=== PATIENT | female | born 1955 | race Hispanic/Latino ===

== ENCOUNTER → 2018-05-02 | Outpatient (CLI) | payer OTHER | END | disposition home or self-care (01) | LOC: RAH 08:54 | PROVIDERS: ATTEND Family Medicine | DX: K76.0 Fatty (change of) liver, not elsewhere classified (principal); R16.0 Hepatomegaly, not elsewhere classified; R63.4 Abnormal weight loss | CPT/HCPCS: 76700; 76856 ==

== ENCOUNTER → 2018-09-14 | Outpatient (CLI) | payer OTHER ==
[~2018-09-14] MED LIST: REGADENOSON 0.4 MG/5 ML PF SYG IVP SCH
== END | disposition home or self-care (01) ==
LOC: SHCH 08:13
PROVIDERS: ATTEND Internal Medicine Cardiovascular Disease
DX: I25.119 Atherosclerotic heart disease of native coronary artery with unspecified angina pectoris (principal); I10 Essential (primary) hypertension
CPT/HCPCS: 78452; 93017; 96374; A9500 ×2; J2785

== ENCOUNTER 2018-11-09 05:44 | Day surgery (SDC) | payer OTHER ==
[2018-11-07 13:14] VITALS: BP 140/73
[2018-11-07 13:22] LABS: BASOPHILS % (AUTO) 0.4 % (0.0-5.0); EOSINOPHILS % (AUTO) 1.4 % (0.0-8.0); HEMATOCRIT 45.7 % (36-48); LYMPHOCYTES % (AUTO) 27.4 % (21.0-51.0); MEAN CORPUSCULAR HEMOGLOBIN 31.4 pg (27.0-33.0); MEAN CORPUSCULAR HGB CONC 33.2 g/dL (32.0-36.0); MEAN CORPUSCULAR VOLUME 94.4 fL (79-99); MONOCYTES % (AUTO) 4.1 % (3.0-13.0); NEUTROPHILS % (AUTO) 66.7 % (40.0-77.0); PLATELET COUNT (AUTO) 210 K/uL (130-400); RED BLOOD CELL COUNT(AUTO) 4.84 MIL/uL (4.00-5.50); RED CELL DISTRIBUTION WIDTH 13.5 % (11.0-15.5); WHITE BLOOD COUNT (AUTO) 11.3 K/uL (4.8-10.8)
[2018-11-07 13:24] LABS: APPEARANCE,URINE CLEAR (CLEAR); BILIRUBIN,URINE NEGATIVE (NEGATIVE); COLOR,URINE YELLOW (YELLOW); GLUCOSE, URINE (UA) NEGATIVE (NEGATIVE); KETONES,URINE NEGATIVE (NEGATIVE); LEUKOCYTE ESTERASE ,URINE NEGATIVE (NEGATIVE); NITRATE,URINE NEGATIVE (NEGATIVE); OCCULT BLOOD,URINE NEGATIVE (NEGATIVE); PH,URINE 5.5 (5.0-8.0); PROTEIN,URINE NEGATIVE (NEGATIVE); UROBILINOGEN,URINE 0.2 mg/dL (0.2-1.0)
[2018-11-07 13:28] LABS: CREATININE 0.9 mg/dL (0.5-1.5); POTASSIUM 3.5 mmol/L (3.5-5.1)
[2018-11-07 13:38] LABS: INR 0.98 (0.85-1.15); PARTIAL THROMBOPLASTIN TIME 27.3 SEC (26.3-35.5); PROTHROMBIN TIME 10.3 SEC (9.6-11.6)
--- NOTE | 2018-11-08 12:08 | NUR ---
ABNORMAL LABS REPORTED ABNORMAL LABS TO NAZ NIETO. WBC 11.3. ORDERS TO REDRAW CBC IN MORNING.
[2018-11-09] VITALS (20 sets, daily range): BP systolic 121–158; BP diastolic 61–98
[~2018-11-09] VITALS: Ht 157.5 cm; Wt 83.0 kg
[~2018-11-09 05:44] MED LIST changes: +ASPI-555 PO; +LOSA50TA64 PO; +METF-444 PO; +METO100T14 PO; +RANI150T7 PO; -REGADENOSON 0.4 MG/5 ML PF SYG IVP SCH
[2018-11-09 06:04] LABS: BASOPHILS % (AUTO) 0.9 % (0.0-5.0); EOSINOPHILS % (AUTO) 2.1 % (0.0-8.0); HEMATOCRIT 43.5 % (36-48); LYMPHOCYTES % (AUTO) 35.2 % (21.0-51.0); MEAN CORPUSCULAR VOLUME 93.9 fL (79-99); MONOCYTES % (AUTO) 6.2 % (3.0-13.0); NEUTROPHILS % (AUTO) 55.6 % (40.0-77.0); NUCLEATED RED BLOOD CELLS 0.1 % (0.0-0.19); PLATELET COUNT (AUTO) 181 K/uL (130-400); RED BLOOD CELL COUNT(AUTO) 4.63 MIL/uL (4.00-5.50); RED CELL DISTRIBUTION WIDTH 13.5 % (11.0-15.5); WHITE BLOOD COUNT (AUTO) 9.4 K/uL (4.8-10.8)
[2018-11-09] MEDS ORDERED: SODIUM CHLORIDE 0.9% 1000ML 1,000 ML IV ONE (06:22)
[2018-11-09] MEDS ORDERED: IOHEXOL 350 MG/ML 100ML INFUS..BTL IV ONE (07:13)
[2018-11-09] MEDS ORDERED: HEPARIN SODIUM 1000UNIT/ML 10ML VIAL ONE (07:13)
[2018-11-09] MEDS ORDERED: LIDOCAINE HCL 2% 20ML ONE (07:13)
[2018-11-09] MEDS ORDERED: IOHEXOL-350 50ML VIAL IV ONE (07:13)
--- NOTE | 2018-11-09 07:15 | NUR ---
procedure pt taken to test lab technician for LHC, pt awake and alert,no distress noted. denies any pain or discomforts. family at bedside, pt voided prior to going
[2018-11-09] MEDS ORDERED: SODIUM CHLORIDE 0.9% 1000ML 1,000 ML IV SCH (08:00)
[2018-11-09] MEDS ORDERED: DEXTROSE 50%-WATER 50 ML DISP.SYRIN IV PRN (08:15)
[2018-11-09] MEDS ORDERED: GLUCAGON 1MG KIT 1 MG ML IM PRN (08:15)
[2018-11-09] MEDS ORDERED: SODIUM CHLORIDE 0.9% 10 ML VIAL IVP SCH (08:15)
--- NOTE | 2018-11-09 08:51 | NUR ---
A- LINE RIGHT GROIN ARTERIAL LINE PULLED BY Trinidad CARRIZALES RN. MANUAL PRESSURED BEING APPLIED. VS STABLE WILL CONTINUE TO MONITOR, RIGHT PEDAL PULSE PRESENT WITH DOPPLER ,
--- NOTE | 2018-11-09 09:20 | NUR ---
A- LINE HEMOSTASIS ACHIEVED, D STAT APPLIED TO RIGHT GROIN AREA. NO BLEEDING OR HEMATOMA NOTED, VS STABLE. PT RAHUL WELL. PT INSTRUCTED TO MAINTAIN BEDREST FOR 7 HRS. WILL CONTINUE TO MONITOR
[2018-11-09] MEDS ORDERED: INSULIN HUMULIN R 100 UNIT/ML 3ML SQ SCH (11:30)
--- NOTE | 2018-11-09 15:49 | NUR ---
dc dc instructions given to pt /pts daughter instructed to hold metformin for 48 hrs, to f/u with dr. redman, right groin dressing dry and intact, no hematoma or bleeding noted. right leg warm to touch, pink and with postive pedal pulse per doppler. pt awake and alert , denied any pain or discomforts. daughter at bedside. piv removed to left hand, catheter intact, site asymptomatic
--- NOTE | 2018-11-09 16:01 | NUR ---
dc pt dc home via w[place] , accompanied by daughter, pt awake and alert, right groin dressing dry and intact, no bleeding hematoma to site.
== END 2018-11-09 16:01 | disposition home or self-care (01) ==
LOC: DAH 05:44
PROVIDERS: ATTEND Internal Medicine Cardiovascular Disease
DX: I25.118 Atherosclerotic heart disease of native coronary artery with other forms of angina pectoris (principal); Z79.899 Other long term (current) drug therapy; Z79.01 Long term (current) use of anticoagulants; E78.5 Hyperlipidemia, unspecified; I11.9 Hypertensive heart disease without heart failure; E66.01 Morbid (severe) obesity due to excess calories; E11.9 Type 2 diabetes mellitus without complications; Z79.84 Long term (current) use of oral hypoglycemic drugs; Z68.32 Body mass index [BMI] 32.0-32.9, adult
CPT/HCPCS: 36415 ×2; 71045; 80048; 81003; 82948 ×3; 85025 ×2; 85610; 85730; 93005; 93458; A4606; C1894; J1644; J1815; J3490; J7030; Q9965; Q9967 ×2

== ENCOUNTER → 2019-08-17 | Outpatient (CLI) | payer OTHER ==
[~2019-08-17] MED LIST changes: +ROPIVACAINE 0.5% 5MG/ML 30ML IJ ONE
== END | disposition home or self-care (01) ==
LOC: SHCH 14:31
PROVIDERS: ATTEND Internal Medicine Cardiovascular Disease
DX: I73.9 Peripheral vascular disease, unspecified (principal)
CPT/HCPCS: 93925

== ENCOUNTER → 2021-06-11 | Outpatient (CLI) | payer MEDICARE ==
[~2021-06-11] MED LIST changes: -ASPI-555 PO; +ASPI-556 PO; -ROPIVACAINE 0.5% 5MG/ML 30ML IJ ONE
[2021-06-11 15:36] LABS: CREATININE 0.7 mg/dL (0.5-1.5)
== END | disposition home or self-care (01) ==
LOC: LAB 14:15
PROVIDERS: ATTEND Internal Medicine Cardiovascular Disease
DX: I25.10 Atherosclerotic heart disease of native coronary artery without angina pectoris (principal); E78.5 Hyperlipidemia, unspecified
CPT/HCPCS: 36415; 82565; 84520

== ENCOUNTER → 2021-06-15 | Outpatient (CLI) | payer MEDICARE ==
[~2021-06-15] MED LIST changes: +IOHEXOL-350 50ML VIAL IV ONE
== END | disposition home or self-care (01) ==
LOC: RAH 08:00
PROVIDERS: ATTEND Internal Medicine Cardiovascular Disease
DX: I70.0 Atherosclerosis of aorta (principal); I70.292 Other atherosclerosis of native arteries of extremities, left leg
CPT/HCPCS: 75635; Q9967

== ENCOUNTER 2022-03-03 05:53 | Day surgery (SDC) | payer OTHER ==
[2022-03-01 09:18] VITALS: BP 137/76
[2022-03-01 09:49] LABS: BASOPHILS % (AUTO) 0.3 % (0.0-5.0); EOSINOPHILS % (AUTO) 2.1 % (0.0-8.0); HEMATOCRIT 42.2 % (36-48); LYMPHOCYTES % (AUTO) 29.1 % (21.0-51.0); MEAN CORPUSCULAR HEMOGLOBIN 31.4 pg (27.0-33.0); MEAN CORPUSCULAR HGB CONC 32.9 g/dL (32.0-36.0); MEAN CORPUSCULAR VOLUME 95.5 fL (79-99); MONOCYTES % (AUTO) 5.6 % (3.0-13.0); NEUTROPHILS % (AUTO) 62.6 % (40.0-77.0); PLATELET COUNT (AUTO) 257 K/uL (130-400); RED BLOOD CELL COUNT(AUTO) 4.42 MIL/uL (4.00-5.50)
[2022-03-01 09:56] LABS: CREATININE 0.6 mg/dL (0.5-1.5); POTASSIUM 4.6 mmol/L (3.5-5.1)
[2022-03-01 10:28] LABS: INR 0.94 (0.85-1.15); PROTHROMBIN TIME 10.3 SEC (9.6-11.6)
[2022-03-01 10:29] LABS: PARTIAL THROMBOPLASTIN TIME 25.4 SEC (26.3-35.5)
[2022-03-03] VITALS (10 sets, daily range): BP systolic 121–146; BP diastolic 70–85
[~2022-03-03] VITALS: Ht 157.5 cm; Wt 74.8 kg
[~2022-03-03 05:53] MED LIST changes: -IOHEXOL-350 50ML VIAL IV ONE
[2022-03-03] MEDS ORDERED: 0.9%NACL 1000ML 1,000 ML IV ONE (06:14)
[2022-03-03] MEDS ORDERED: CILO100T PO (06:58)
[2022-03-03] MEDS ORDERED: CLOP75TA14 PO (06:58)
[2022-03-03] MEDS ORDERED: FISH1CAP27 PO (06:58)
[2022-03-03] MEDS ORDERED: MVIT PO (06:58)
[2022-03-03] MEDS ORDERED: NICARDIPINE 25MG INJ IV ONE (07:11)
[2022-03-03] MEDS ORDERED: NITROGLYCERIN 50MG VIAL ONE (07:11)
[2022-03-03] MEDS ORDERED: HEPARIN 10,000 UNIT/10ML (1,000 UNIT/ML) VIAL ONE (07:11)
[2022-03-03] MEDS ORDERED: IODIXANOL 320 MG/ML 100 ML VIAL ONE (07:12)
[2022-03-03] MEDS ORDERED: LIDOCAINE HCL 400MG/20ML VIAL ONE (07:12)
[2022-03-03] MEDS ORDERED: MIDAZOLAM HCL 1 MG/ML 2ML VIAL ONE (07:40)
[2022-03-03] MEDS ORDERED: FENTANYL CITRATE PF 50 MCG/1 ML 2ML VIAL ONE (07:41)
[2022-03-03] MEDS ORDERED: ASPIRIN 325MG EC TAB PO ONE (09:28)
[2022-03-03] MEDS ORDERED: CLOPIDOGREL 300MG TAB ONE (09:29)
[2022-03-03] MEDS ORDERED: GLUCAGON 1MG KIT 1 MG ML IM PRN (09:30)
[2022-03-03] MEDS ORDERED: DEXTROSE 50%-WATER 50 ML DISP.SYRIN IV PRN (09:30)
== END 2022-03-03 13:45 | disposition home or self-care (01) ==
LOC: DAH 05:53
PROVIDERS: ATTEND Internal Medicine Cardiovascular Disease
DX: I70.211 Atherosclerosis of native arteries of extremities with intermittent claudication, right leg (principal); E11.51 Type 2 diabetes mellitus with diabetic peripheral angiopathy without gangrene; I70.92 Chronic total occlusion of artery of the extremities; I10 Essential (primary) hypertension; E78.5 Hyperlipidemia, unspecified; I25.2 Old myocardial infarction; Z79.01 Long term (current) use of anticoagulants; Z79.899 Other long term (current) drug therapy; Z79.84 Long term (current) use of oral hypoglycemic drugs; Z87.891 Personal history of nicotine dependence
CPT/HCPCS: 36415; 71045; 75710; 80048; 82948 ×2; 85025; 85347; 85610; 85730; 93005; A4215; A4216; A4221; A4222; A4223 ×3; A4606; A4663; C1727; C1769 ×2; C1894 ×4; C9772; J1644 ×2; J2250; J3010; J3490 ×3; J7030; Q9967; 36140; 99156; 99157

== ENCOUNTER 2022-04-09 05:52 | Day surgery (SDC) | payer OTHER ==
[2022-04-07 09:02] LABS: BASOPHILS % (AUTO) 0.3 % (0.0-5.0); HEMATOCRIT 43.4 % (36-48); LYMPHOCYTES % (AUTO) 30.3 % (21.0-51.0); MEAN CORPUSCULAR HEMOGLOBIN 31.7 pg (27.0-33.0); MEAN CORPUSCULAR HGB CONC 33.6 g/dL (32.0-36.0); MEAN CORPUSCULAR VOLUME 94.3 fL (79-99); MONOCYTES % (AUTO) 5.3 % (3.0-13.0); NEUTROPHILS % (AUTO) 61.8 % (40.0-77.0); PLATELET COUNT (AUTO) 280 K/uL (130-400); RED CELL DISTRIBUTION WIDTH 13.4 % (11.0-15.5); WHITE BLOOD COUNT (AUTO) 10.1 K/uL (4.8-10.8)
[2022-04-07 09:09] LABS: CREATININE 0.6 mg/dL (0.5-1.5); POTASSIUM 4.5 mmol/L (3.5-5.1)
[2022-04-07 09:10] LABS: INR 0.95 (0.85-1.15); PROTHROMBIN TIME 10.4 SEC (9.6-11.6)
[2022-04-07 09:12] LABS: PARTIAL THROMBOPLASTIN TIME 26.2 SEC (26.3-35.5)
[2022-04-07 09:26] LABS: B-TYPE NATRIURETIC PEPTIDE 19 pg/mL (0-100)
[2022-04-08 10:40] VITALS: BP 142/81
[2022-04-09] VITALS (9 sets, daily range): BP systolic 121–153; BP diastolic 71–88
[~2022-04-09] VITALS: Ht 157.5 cm; Wt 76.2 kg
[~2022-04-09 05:52] MED LIST changes: -ASPI-556 PO; +CILO100T PO; +CLOP75TA14 PO; +FISH1CAP27 PO; +PANT40TA54 PO; -RANI150T7 PO
[2022-04-09] MEDS ORDERED: 0.9% NACL 500ML IV.SOLN 500 ML IV SCH (06:00)
[2022-04-09] MEDS ORDERED: 0.9%NACL 1000ML 1,000 ML IV ONE (06:51)
[2022-04-09] MEDS ORDERED: NICARDIPINE 25MG INJ IV ONE (07:14)
[2022-04-09] MEDS ORDERED: HEPARIN 10,000 UNIT/10ML (1,000 UNIT/ML) VIAL ONE (07:14)
[2022-04-09] MEDS ORDERED: NITROGLYCERIN 50MG VIAL ONE (07:14)
[2022-04-09] MEDS ORDERED: SODIUM BICARB 50MEQ 50ML VIAL 0 ML ONE (07:14)
[2022-04-09] MEDS ORDERED: LIDOCAINE HCL 400MG/20ML VIAL ONE ×2 (07:15→08:20)
[2022-04-09] MEDS ORDERED: IODIXANOL 320 MG/ML 100 ML VIAL ONE (07:15)
[2022-04-09] MEDS ORDERED: FENTANYL CITRATE PF 50 MCG/1 ML 2ML VIAL ONE (07:19)
[2022-04-09] MEDS ORDERED: MIDAZOLAM HCL 1 MG/ML 2ML VIAL ONE ×2 (07:19→09:29)
[2022-04-09] MEDS ORDERED: DEXTROSE 50%-WATER 50 ML DISP.SYRIN IV PRN (10:00)
[2022-04-09] MEDS ORDERED: GLUCAGON 1MG KIT 1 MG ML IM PRN (10:00)
== END 2022-04-09 14:15 | disposition home or self-care (01) ==
LOC: DAH 05:52
PROVIDERS: ATTEND Internal Medicine Cardiovascular Disease
DX: I70.212 Atherosclerosis of native arteries of extremities with intermittent claudication, left leg (principal); I10 Essential (primary) hypertension; I25.10 Atherosclerotic heart disease of native coronary artery without angina pectoris; E78.5 Hyperlipidemia, unspecified; F17.200 Nicotine dependence, unspecified, uncomplicated; E66.9 Obesity, unspecified; Z79.01 Long term (current) use of anticoagulants; Z79.899 Other long term (current) drug therapy; Z79.84 Long term (current) use of oral hypoglycemic drugs; Z98.890 Other specified postprocedural states; Z79.82 Long term (current) use of aspirin; Z68.30 Body mass index [BMI] 30.0-30.9, adult; Z95.5 Presence of coronary angioplasty implant and graft
CPT/HCPCS: 36415 ×2; 71045; 75716; 80048; 82948 ×2; 83880; 85025; 85347 ×2; 85610; 85730; 93005; A4215; A4216; A4221; A4222; A4223 ×3; A4606; A4663; C1725; C1727; C1760; C1769 ×6; C1887; C1894 ×3; C9772; J1644 ×3; J2250 ×2; J3010; J3490 ×4; J7030; Q9967; 75774; 99156; 99157

== ENCOUNTER 2023-03-28 18:36 | Observation (INO) | payer OTHER ==
[~2023-03-28] VITALS: Ht 157.5 cm; Wt 78.6 kg
[~2023-03-28 18:36] MED LIST changes: -CILO100T PO; +CILO100T3 PO; +CLOP-31 PO; -CLOP75TA14 PO
[2023-03-28 19:13] LABS: BASOPHILS % (AUTO) 0.4 % (0.0-5.0); EOSINOPHILS % (AUTO) 2.1 % (0.0-8.0); HEMATOCRIT 43.2 % (36-48); LYMPHOCYTES % (AUTO) 41.1 % (21.0-51.0); MEAN CORPUSCULAR HGB CONC 34.5 g/dL (32.0-36.0); MEAN CORPUSCULAR VOLUME 92.9 fL (79-99); MONOCYTES % (AUTO) 7.1 % (3.0-13.0); NEUTROPHILS % (AUTO) 48.9 % (40.0-77.0); PLATELET COUNT (AUTO) 236 K/uL (130-400); RED BLOOD CELL COUNT(AUTO) 4.65 MIL/uL (4.00-5.50); RED CELL DISTRIBUTION WIDTH 13.1 % (11.0-15.5); WHITE BLOOD COUNT (AUTO) 9.3 K/uL (4.8-10.8)
[2023-03-28 19:24] LABS: CREATININE 0.7 mg/dL (0.5-1.5); POTASSIUM 3.3 mmol/L (3.5-5.1)
[2023-03-28 19:29] LABS: TOTAL PROTEIN, SERUM 7.5 g/dL (6.0-8.3)
[2023-03-28 19:44] LABS: B-TYPE NATRIURETIC PEPTIDE 29 pg/mL (0-100)
[2023-03-28] MEDS ORDERED: MORPHINE 2 MG SYG IVP ONE (20:00)
[2023-03-28] MEDS ORDERED: IOHEXOL-350 75 ML VIAL IV ONE (20:13)
[2023-03-28 21:27] LABS: APPEARANCE,URINE CLEAR (CLEAR); BILIRUBIN,URINE NEGATIVE (NEGATIVE); COLOR,URINE COLORLESS (YELLOW); GLUCOSE, URINE (UA) NEGATIVE (NEGATIVE); KETONES,URINE NEGATIVE (NEGATIVE); LEUKOCYTE ESTERASE ,URINE NEGATIVE Leu/uL (NEGATIVE); NITRATE,URINE NEGATIVE (NEGATIVE); OCCULT BLOOD,URINE NEGATIVE (NEGATIVE); PH,URINE 5.5 (5.0-8.0); PROTEIN,URINE NEGATIVE (NEGATIVE); UROBILINOGEN,URINE 0.2 mg/dL (0.2-1.0)
[2023-03-28 21:32] LABS: RBC,URINE 0-1 /HPF (0-1); SQUAMOUS EPITHELIAL CELL,UR RARE /HPF (0-2); WBC,URINE 0-1 /HPF (0-1)
[2023-03-28] MEDS ORDERED: NITROGLYCERIN 0.4 MG SL TAB SL PRN (22:00)
[2023-03-28] MEDS ORDERED: DOCUSATE SODIUM 100 MG CAP PO PRN (22:00)
[2023-03-28] MEDS ORDERED: ACETAMINOPHEN 325 MG TAB PO PRN ×2 (22:00)
[2023-03-28] MEDS ORDERED: GUAIFENESIN SUGAR-FREE 100 MG/5 ML UDCUP PO PRN (22:00)
[2023-03-28] MEDS ORDERED: POLYETHYLENE GLYCOL 3350 17 GM POWD.PACK PO PRN (22:00)
[2023-03-28] MEDS ORDERED: ONDANSETRON 4MG INJ IV PRN (22:00)
[2023-03-28] MEDS ORDERED: ARTIFICAL TEARS SOL 15 ML OP PRN (22:00)
[2023-03-28] MEDS ORDERED: ALBUTEROL 0.083% 2.5 MG/3 ML INH IH PRN (22:00)
[2023-03-28] MEDS: ASPIRIN 325MG EC TAB PO SCH (22:24)
[2023-03-29 02:03] VITALS: BP 144/83
[2023-03-29] MEDS ORDERED: NIFE-78 PO (03:02)
[2023-03-29] MEDS ORDERED: FENO145T26 PO (03:02)
[2023-03-29] MEDS ORDERED: APIX2.5T PO (03:02)
[2023-03-29] MEDS ORDERED: PANT20TA PO (03:02)
[2023-03-29 04:13] VITALS: BP 103/78
[2023-03-29 05:58] LABS: HEMATOCRIT 40.8 % (36-48); MEAN CORPUSCULAR HEMOGLOBIN 31.5 pg (27.0-33.0); MEAN CORPUSCULAR HGB CONC 33.8 g/dL (32.0-36.0); MEAN CORPUSCULAR VOLUME 93.2 fL (79-99); RED BLOOD CELL COUNT(AUTO) 4.38 MIL/uL (4.00-5.50); RED CELL DISTRIBUTION WIDTH 13.2 % (11.0-15.5); WHITE BLOOD COUNT (AUTO) 6.8 K/uL (4.8-10.8)
[2023-03-29] MEDS: INSULIN HUMULIN R 100 UNIT/ML 3ML SQ SCH ×4 (06:00→18:00)
[2023-03-29 06:28] LABS: ALBUMIN 3.4 g/dL (3.5-5.0); CREATININE 0.6 mg/dL (0.5-1.5); MAGNESIUM 1.7 mg/dL (1.80-2.40); POTASSIUM 3.8 mmol/L (3.5-5.1); THYROID STIMULATING HORMONE 2.58 uIU/mL (0.36-3.74); TOTAL PROTEIN, SERUM 6.7 g/dL (6.0-8.3)
[2023-03-29] MEDS ORDERED: MAGNESIUM 2GM PREMIX 50ML 50 ML IV PRN (07:00)
[2023-03-29 08:00] VITALS: BP 144/89
[2023-03-29] MEDS: ASPIRIN 325MG EC TAB PO SCH ×2 (09:00→09:30)
[2023-03-29] MEDS: FAMOTIDINE 20MG VIAL IV SCH ×2 (09:29→20:41)
[2023-03-29 12:00] VITALS: BP 149/84
[2023-03-29 16:00] VITALS: BP 150/81
[2023-03-29 20:41] VITALS: BP 162/78
[2023-03-29] MEDS ORDERED: ATORVASTATIN 40 MG TABLET PO SCH (21:00)
[2023-03-30] VITALS: BP 142/79
[2023-03-30 04:00] VITALS: BP 154/85
[2023-03-30 05:22] LABS: HEMATOCRIT 41.2 % (36-48); MEAN CORPUSCULAR HEMOGLOBIN 31.5 pg (27.0-33.0); MEAN CORPUSCULAR HGB CONC 33.5 g/dL (32.0-36.0); MEAN CORPUSCULAR VOLUME 94.1 fL (79-99); RED BLOOD CELL COUNT(AUTO) 4.38 MIL/uL (4.00-5.50); WHITE BLOOD COUNT (AUTO) 5.9 K/uL (4.8-10.8)
[2023-03-30 05:30] LABS: CREATININE 0.5 mg/dL (0.5-1.5); MAGNESIUM 1.8 mg/dL (1.80-2.40); POTASSIUM 3.8 mmol/L (3.5-5.1)
[2023-03-30] MEDS: INSULIN HUMULIN R 100 UNIT/ML 3ML SQ SCH ×2 (07:32)
[2023-03-30 08:57] VITALS: BP 164/93
[2023-03-30] MEDS ORDERED: CLON0.1T PO (09:27)
[2023-03-30] MEDS: FAMOTIDINE 20MG VIAL IV SCH (09:28)
[2023-03-30] MEDS: ASPIRIN 325MG EC TAB PO SCH (09:28)
== END 2023-03-30 12:12 | disposition home or self-care (01) ==
LOC: EDH 18:36 → EDHIP 21:33 → 3CH 03-29 02:16
PROVIDERS: ADMIT Internal Medicine Critical Care Medicine; ATTEND Internal Medicine Critical Care Medicine
DX: R51.9 Headache, unspecified (principal); Z20.822 Contact with and (suspected) exposure to COVID-19; R42 Dizziness and giddiness; R60.0 Localized edema; R53.1 Weakness; R47.1 Dysarthria and anarthria; I73.9 Peripheral vascular disease, unspecified; I65.29 Occlusion and stenosis of unspecified carotid artery; I63.9 Cerebral infarction, unspecified; Q21.12 Patent foramen ovale; I10 Essential (primary) hypertension; E11.9 Type 2 diabetes mellitus without complications; M81.0 Age-related osteoporosis without current pathological fracture; E78.5 Hyperlipidemia, unspecified; F17.200 Nicotine dependence, unspecified, uncomplicated; Z90.710 Acquired absence of both cervix and uterus; Z79.899 Other long term (current) drug therapy
CPT/HCPCS: 96375 ×2; 82550; 84484; 80053 ×2; 83880; 85025; 85730; 81001; 36415 ×3; 87635; 71045; 70450; 70496; 70498; 99291; 99292; 93005; 94664; 96376 ×2; 84443; 83721; 83735 ×2; 85027 ×2; 82948 ×9; 93306; 93356; 93970; 70551; 92610; 96365; 96366; 80048; 82140; G0378 ×36; C9803; J2270; Q9967; J3490 ×3; J1815; J3475; 96374

== ENCOUNTER → 2023-05-27 | Outpatient (CLI) | payer OTHER ==
[~2023-05-27] MED LIST changes: +APIX2.5T PO; +CLON0.1T PO; -CLOP-31 PO; +CYCL10TA16 PO; +FENO145T26 PO; +NAPR-1192 PO; +PANT20TA PO; -PANT40TA54 PO
[2023-05-27 21:36] VITALS: PULSE 72; RESP 20
[2023-05-27 22:00] VITALS: PULSE 70; RESP 20
[2023-05-27 22:30] VITALS: PULSE 78; RESP 18
[2023-05-27 23:00] VITALS: PULSE 72; RESP 20
[2023-05-27 23:30] VITALS: PULSE 68; RESP 18
[2023-05-28] VITALS (11 sets, daily range): PULSE 67–78; RESP 16–20
== END | disposition home or self-care (01) ==
LOC: SLP 20:16
PROVIDERS: ATTEND Family Medicine
DX: G47.33 Obstructive sleep apnea (adult) (pediatric) (principal)
CPT/HCPCS: 95811

== ENCOUNTER 2024-02-27 19:53 | Emergency (ER) | payer OTHER ==
[~2024-02-27] VITALS: Ht 157.5 cm; Wt 77.1 kg
[2024-02-28 00:47] VITALS: BP 132/76; PULSE 80; RESP 18; O2SAT 98
== END 2024-02-28 01:30 | disposition home or self-care (01) ==
LOC: EDH 19:53
DX: M25.562 Pain in left knee (principal); M25.551 Pain in right hip; I10 Essential (primary) hypertension; E11.9 Type 2 diabetes mellitus without complications; Z79.84 Long term (current) use of oral hypoglycemic drugs; Z79.899 Other long term (current) drug therapy; Z98.890 Other specified postprocedural states; Z88.8 Allergy status to other drugs, medicaments and biological substances
CPT/HCPCS: 70450; 72170; 73562

== ENCOUNTER → 2024-09-13 | Outpatient (CLI) | payer OTHER, MEDICARE ==
[~2024-09-13] MED LIST changes: +IOHEXOL 350 MG/ML 100ML INFUS..BTL IV ONE
--- NOTE | 2024-09-13 11:06 | HMCIMG ---
CT ABDOMEN/PELVIS W/CONTRAST REASON: LOWER ABD PAIN COMPARISON: 06/15/2021 TECHNIQUE: Images are obtained from lung bases to the symphysis pubis following IV contrast, 100 cc Omnipaque 350. FINDINGS: Lung bases are clear. There is moderate fatty infiltration of the liver. There are no focal liver lesions.. There are normal-appearing kidneys.. Spleen and pancreas appear unremarkable. There has been a previous cholecystectomy. There is marked diverticulosis of the sigmoid colon with scattered diverticula in the remainder of the colon. There is no evidence of diverticulitis. Bowel loops appear otherwise unremarkable. There has been a previous appendectomy. There is no evidence of free fluid or intraperitoneal air. There are no focal fluid collections. Aorta and retroperitoneum appear normal as do pelvic soft tissue structures. The anterior abdominal wall is intact. Osseous structures appear unremarkable. IMPRESSION: 1. Marked diverticulosis of the sigmoid colon without evidence of diverticulitis, there is also some scattered diverticula through the remainder of the colon. 2. Absent gallbladder. 3. Moderate hepatic steatosis. CT was performed with one or more following dose reduction techniques: automated exposure control, adjustment of the mA and kv according to patient's size, or use of a iterative reconstruction technique.
== END | disposition home or self-care (01) ==
LOC: RAH 08:02
PROVIDERS: ATTEND Internal Medicine Gastroenterology
DX: K57.30 Diverticulosis of large intestine without perforation or abscess without bleeding (principal); R10.30 Lower abdominal pain, unspecified; K76.0 Fatty (change of) liver, not elsewhere classified; Z98.890 Other specified postprocedural states; Z90.49 Acquired absence of other specified parts of digestive tract
CPT/HCPCS: 74177; Q9967

== ENCOUNTER → 2024-11-14 | Outpatient (CLI) | payer OTHER, MEDICARE ==
[~2024-11-14] MED LIST changes: -IOHEXOL 350 MG/ML 100ML INFUS..BTL IV ONE
== END | disposition home or self-care (01) ==
LOC: SHCH 08:12
PROVIDERS: ATTEND Internal Medicine Cardiovascular Disease
DX: R01.1 Cardiac murmur, unspecified (principal)
CPT/HCPCS: 93306

== ENCOUNTER 2025-03-09 14:44 | Emergency (ER) | payer OTHER, MEDICARE ==
[~2025-03-09] VITALS: Ht 157.5 cm; Wt 69.9 kg
--- NOTE | 2025-03-09 16:05 | EKG ---
[facility] Test Date: 2025-03-09 Test Time: 16:02:36 Pat Name: JEAN CANALES Department: ED Room: Gender: F [facility]: [id number] : 1955 Requested By: SANDRA CANTU Order Number: [id number] Reading MD: Vish Keenan Measurements Intervals [place] Rate: 86 P: 59 [place]: 207 QRS: -12 QRSD: 79 T: -19 QT: 373 QTc: 446 Interpretive Statements Sinus rhythm Probable anteroseptal infarct, old Compared to ECG 03/28/2023 18:58:41 No significant changes Electronically Signed On 03-10-2025 13:15:54 CDT by Vish Keenan Please click the below link to view image of tracing.
[2025-03-09] MEDS: 0.9%NACL 1000ML 1,000 ML IV STA (16:44)
[2025-03-09 16:46] LABS: BASOPHILS # (AUTO) 0.03 K/uL (0.00-0.20); BASOPHILS % (AUTO) 0.2 % (0.0-5.0); EOSINOPHILS # (AUTO) 0.08 K/uL (0.00-0.70); EOSINOPHILS % (AUTO) 0.6 % (0.0-8.0); HEMATOCRIT 46.6 % (36-48); IMMATURE GRANULOCYTE ABSOLUTE 0.05 K/uL (0-1); LYMPHOCYTES # (AUTO) 2.5 K/uL (1.0-4.8); LYMPHOCYTES % (AUTO) 17.5 % (21.0-51.0); MEAN CORPUSCULAR HEMOGLOBIN 31.2 pg (27.0-33.0); MEAN CORPUSCULAR VOLUME 94.3 fL (79-99); MONOCYTES # (AUTO) 0.6 K/uL (0.1-1.0); MONOCYTES % (AUTO) 4.3 % (3.0-13.0); PLATELET COUNT (AUTO) 233 K/uL (130-400); RED BLOOD CELL COUNT(AUTO) 4.94 MIL/uL (4.00-5.50); RED CELL DISTRIBUTION WIDTH 13.7 % (11.0-15.5); WHITE BLOOD COUNT (AUTO) 14.3 K/uL (4.8-10.8)
[2025-03-09] MEDS: morPHINE 2 MG SYG IVP STA (16:49)
[2025-03-09 16:56] LABS: CREATININE 0.8 mg/dL (0.5-1.0); POTASSIUM 3.4 mmol/L (3.5-5.1)
[2025-03-09 17:01] LABS: ALBUMIN 3.7 g/dL (3.5-5.0); BILIRUBIN,DIRECT 0.1 mg/dL (0.0-0.3); BILIRUBIN,TOTAL 0.4 mg/dL (0.2-1.0); TOTAL PROTEIN, SERUM 7.4 g/dL (6.0-8.3)
[2025-03-09] MEDS ORDERED: IOHEXOL-350 75 ML VIAL IV ONE (18:58)
--- NOTE | 2025-03-09 19:01 | NUR ---
PT IN CT AT THIS TIME
--- NOTE | 2025-03-09 19:27 | HMCIMG ---
Exam Type: CT ABDOMEN/PELVIS W/CONTRAST Clinical Information: GENERALIZED ABD PAIN/DIARRHEA Comparison: None Contrast: 100 cc's Isovue 370 IV, no complications or adverse reactions CT Dose Index (CTDI): 31.60 mGy Dose Length Product (DLP): 1740.80 total mGy-cm Findings: Left superior femoral artery stent seen in place. No evidence of nephro or ureterolithiasis is found. No hydronephrosis or ureteral dilatation is seen. The lung bases are clear. The stomach is unremarkable. It shows no wall thickening. No gross ulceration is seen. It is not overly distended. There are no surrounding inflammatory changes. No wall lesions are identified to suggest cancer. The spleen is unremarkable. It is not enlarged. The pancreas shows normal anatomy. It is not fatty replaced. It shows no lesions. The pancreatic duct is not dilated. The gallbladder is surgically absent. The adrenal glands are unremarkable. There is no enlargement. No lesions are noted. The liver is unremarkable. It shows no focal masses. The appendix is unremarkable. It shows no evidence of inflammation. No appendicolith is seen. The small bowel is unremarkable. There is no evidence of dilatation to suggest obstruction. No evidence of adynamic ileus is seen. There is no small bowel wall thickening to suggest enteritis. There is diverticulosis. There is no evidence of acute inflammation to suggest diverticulitis. The colon is otherwise unremarkable. The urinary bladder is unremarkable. There is no wall thickening to suggest tumor or inflammation. There are no intraluminal calculi. There are no diverticula. There is no evidence of chronic bladder outlet obstruction. There is no evidence of urinary bladder distention to suggest urinary retention. The other pelvic structures are unremarkable. Chronic compression fracture upper endplate of L4. 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 IMPRESSION: Chronic changes as noted. No acute pathology. This study was performed using dose reduction techniques to include automated exposure control and/or adjustment of the mA and/or kV according to patient size.
--- NOTE | 2025-03-09 19:34 | ERN ---
ED Note History of Present Illness Stated Complaint: DIARRHEA Chief Complaint: Diarrhea Time Seen by MD: 14:50 Time Seen by Midlevel: 14:55 Dictation: 70-YEAR-OLD FEMALE WITH A HISTORY OF HYPERTENSION DIABETES COMING IN COMPLAINING OF DIARRHEA ONSET YESTERDAY. PATIENT ALSO STATES SHE IS HAVING DYSURIA. DENIES ANY FEVER, NAUSEA OR VOMITING. DENIES ANY CHEST PAIN OR CHEST DISCOMFORT. Allergies: Coded Allergies: nifedipine (Verified Allergy, Intermediate, tongue swelling, 03/30/23) Home Meds Active Scripts Naproxen (Naproxen) 375 Mg Tablet, 375 MG PO BID for 10 Days, #20 TAB 0 Refills Prov:SOUTH GAYTAN Sr., MD 05/13/23 Cyclobenzaprine HCl (Flexeril) 10 Mg Tab, 10 MG PO TID for muscle sstiffness, #14 TAB 0 Refills Prov:SOUTH GAYTAN Sr., MD 05/13/23 Clonidine HCl (Clonidine HCl) 0.1 Mg Tablet, 0.1 MG PO Q6HPRN PRN for IF SBP GREATER THAN 170, #120 TAB Prov:STARLA PORTILLO NP 03/30/23 Reported Medications Pantoprazole Sodium (Protonix) 20 Mg Tablet.dr, 20 MG PO DAILY, TAB 03/29/23 Fenofibrate Nanocrystallized (Fenofibrate) 145 Mg Tablet, 145 MG PO DAILY, TAB 03/29/23 Apixaban (Eliquis) 2.5 Mg Tablet, 2.5 MG PO BID, TAB 03/29/23 Cilostazol (Cilostazol) 100 Mg Tablet, 100 MG PO BID, TAB 03/03/22 [place]-3 Fatty Acids/Fish Oil ([place] 3 1,000 mg Softgel) 1 Each Capsule, 1 EACH PO BID, CAP 03/03/22 Metformin HCl (Metformin HCl) 500 Mg Tablet, 500 MG PO BID, TAB 11/07/18 Metoprolol Tartrate (Metoprolol Tartrate) 100 Mg Tablet, 50 MG PO BID, TAB 11/07/18 Losartan Potassium (Losartan Potassium) 50 Mg Tablet, 50 MG PO BID, TAB 11/07/18 Past Medical History Past Medical History: Diabetes-Type II, Hypertension Surgical History: Other Surgical History Other: TWO SURGERY OF LEFT LOWER LEG, SURGERY ON LEFT KNEE FX. Social History: Negative Review of System Dictation CONSTITUTIONAL: NEGATIVE FOR FEVER,CHILLS, AND WEIGHT LOSS EYES: NEGATIVE FOR INJURY, PAIN,REDNESS, AND DISCHARGE ENT: NEGATIVE FOR INJURY,PAIN OR SWELLING CARDIOVASCULAR: NEGATIVE FOR CHEST PAIN, PALPITATIONS, AND EDEMA RESPIRATORY: NEGATIVE FOR SHORTNESS OF BREATH, COUGH, AND WHEEZING, ABDOMEN/GI: COMPLAINING OF ABDOMINAL PAIN AND DIARRHEA BACK: NEGATIVE FOR INJURY AND PAIN : NEGATIVE FOR INJURY, BLEEDING AND DISCHARGE MS/EXTREMITY: NEGATIVE FOR INJURY AND DEFORMITY SKIN: NEGATIVE FOR RASH, AND DISCOLORATION NEURO: NEGATIVE FOR HEADACHE, WEAKNESS, NUMBNESS, TINGLING, AND SEIZURE PSYCH: NEGATIVE FOR SUICIDE IDEATION, HOMICIDAL IDEATION, AND HALLUCINATIONS Review of Systems: was completed Initial Vital Sign VS Vital Signs Date Time Temp Pulse Resp B/P (MAP) Pulse Ox O2 Delivery O2 Flow Rate FiO2 03/09/25 14:46 98.1 96 14 137/68 95 Room Air 0 03/09/25 19:30 21 Physical Exam Dictation GENERAL: AWAKE, ALERT, NAD HEAD/FACE: NORMOCEPHALIC, ATRAUMATIC EYES: PERRL, EOMI, VISION AT BASELINE ENT: ORAL CAVITY CLEAR, TMS CLEAR, NO SIGNS OF INFECTION NECK: TRACHEA MIDLINE, SUPPLE, NO NUCHAL RIGIDITY CARDIOVASCULAR: RRR, NORMAL S1/S2, NO MRGS, NO JVD RESPIRATORY: CTAB, NO RESPIRATORY DISTRESS, NO RALES OR WHEEZES ABDOMEN: SOFT, GENERALIZED ABDOMINAL TENDERNESS ON PALPATION, NON-DISTENDED, NORMAL BOWEL SOUNDS, NO GUARDING OR REBOUND. SKIN: WARM, DRY, NORMAL TURGOR, NO RASH MS/EXTREMITY: PULSES EQUAL, NO CYANOSIS, NEUROVASCULAR INTACT, FROM NEURO: COAX4, GCS 15, STRENGTH 5/5, CN 2-12 INTACT, NORMAL CEREBELLAR EXAM, NORMAL GAIT, PSYCH: NORMAL BEHAVIOR, MOOD, AND AFFECT NORMAL Results (Laboratory/Radiology) Laboratory/Radiology Laboratory Tests Test 03/09/25 16:36 03/09/25 19:27 White Blood Count 14.3 K/uL (4.8-10.8) H Red Blood Count 4.94 MIL/uL (4.00-5.50) Hemoglobin 15.4 g/dL (12.0-16.0) Hematocrit 46.6 % (36-48) Mean Corpuscular Volume 94.3 fL (79-99) Mean Corpuscular Hemoglobin 31.2 pg (27.0-33.0) Mean Corpuscular Hemoglobin Concent 33.0 g/dL (32.0-36.0) Red Cell Distribution Width 13.7 % (11.0-15.5) Platelet Count 233 K/uL (130-400) Mean Platelet Volume 11.4 fL (7.5-10.5) H Immature Granulocyte % (Auto) 0.4 % (0-1) Neutrophils (%) (Auto) 77.0 % (40.0-77.0) Lymphocytes (%) (Auto) 17.5 % (21.0-51.0) L Monocytes (%) (Auto) 4.3 % (3.0-13.0) Eosinophils (%) (Auto) 0.6 % (0.0-8.0) Basophils (%) (Auto) 0.2 % (0.0-5.0) Neutrophils # (Auto) 11.0 K/uL (1.8-7.7) H Lymphocytes # (Auto) 2.5 K/uL (1.0-4.8) Monocytes # (Auto) 0.6 K/uL (0.1-1.0) Eosinophils # (Auto) 0.08 K/uL (0.00-0.70) Basophils # (Auto) 0.03 K/uL (0.00-0.20) Absolute Immature Granulocyte (auto 0.05 K/uL (0-1) Nucleated Red Blood Cells 0.0 % (0.0-0.19) Sodium Level 138 mmol/L (136-145) Potassium Level 3.4 mmol/L (3.5-5.1) L Chloride Level 103 mmol/L (101-111) Carbon Dioxide Level 24 mmol/L (21-32) Blood Urea Nitrogen 12 mg/dL (7-18) Creatinine 0.8 mg/dL (0.5-1.0) Glomerular Filtration Rate Calc 80 mL/min (>90) Random Glucose 228 mg/dL (70-105) H Total Calcium 9.4 mg/dL (8.5-10.1) Total Bilirubin 0.4 mg/dL (0.2-1.0) Direct Bilirubin 0.1 mg/dL (0.0-0.3) Aspartate Amino Transf (AST/SGOT) 16 U/L (10-37) Alanine Aminotransferase (ALT/SGPT) 33 U/L (12-78) Alkaline Phosphatase 103 U/L (50-136) Troponin I High Sensitivity 5 ng/L (4-50) Total Protein 7.4 g/dL (6.0-8.3) Albumin 3.7 g/dL (3.5-5.0) Lipase 38 U/L (16-77) Urine Color COLORLESS (YELLOW) Urine Appearance CLEAR (CLEAR) Urine pH 5.0 (5.0-8.0) Urine Specific [place] 1.026 (1.001-1.031) Urine Protein NEGATIVE mg/dL (NEGATIVE) Urine Glucose (UA) >=1000 mg/dL (NEGATIVE) H Urine Ketones NEGATIVE mg/dL (NEGATIVE) Urine Occult Blood NEGATIVE (NEGATIVE) Urine Nitrate NEGATIVE (NEGATIVE) Urine Bilirubin NEGATIVE mg/dL (NEGATIVE) Urine Urobilinogen 0.2 mg/dL (0.2-1.0) Urine Leukocyte Esterase 75 [place]/uL (NEGATIVE) H Urine RBC 2-5 /HPF (0-1) H Urine WBC 11-25 /HPF (0-1) H Urine Squamous Epithelial Cells RARE /HPF (0-2) Urine Bacteria MANY /HPF (None Seen) Labs Reviewed?: Yes CT Scan Comment: [address] [id number] IMAGING REPORT Signed PATIENT: JEAN CANALES MR#: [id number] : 1955 SEX: F AGE: 70 LOCATION: [facility] ORDER 31 STATUS: REG REPORT#: [id number] SERVICE 173 REASON: GENERALIZED ABD PAIN/DIARRHEA ORDERING PHYSICIAN: SANDRA CANTU NP PROCEDURE: ABD PEL W - CT ABDOMEN/PELVIS W/CONTRAST Exam Type: CT ABDOMEN/PELVIS W/CONTRAST Clinical Information: GENERALIZED ABD PAIN/DIARRHEA Comparison: None Contrast: 100 cc's Isovue 370 IV, no complications or adverse reactions CT Dose Index (CTDI): 31.60 mGy Dose Length Product (DLP): 1740.80 total mGy-cm Findings: Left superior femoral artery stent seen in place. No evidence of nephro or ureterolithiasis is found. No hydronephrosis or ureteral dilatation is seen. The lung bases are clear. The stomach is unremarkable. It shows no wall thickening. No gross ulceration is seen. It is not overly distended. There are no surrounding inflammatory changes. No wall lesions are identified to suggest cancer. The spleen is unremarkable. It is not enlarged. The pancreas shows normal anatomy. It is not fatty replaced. It shows no lesions. The pancreatic duct is not dilated. The gallbladder is surgically absent. The adrenal glands are unremarkable. There is no enlargement. No lesions are noted. The liver is unremarkable. It shows no focal masses. The appendix is unremarkable. It shows no evidence of inflammation. No appendicolith is seen. The small bowel is unremarkable. There is no evidence of dilatation to suggest obstruction. No evidence of adynamic ileus is seen. There is no small bowel wall thickening to suggest enteritis. There is diverticulosis. There is no evidence of acute inflammation to suggest diverticulitis. The colon is otherwise unremarkable. The urinary bladder is unremarkable. There is no wall thickening to suggest tumor or inflammation. There are no intraluminal calculi. There are no diverticula. There is no evidence of chronic bladder outlet obstruction. There is no evidence of urinary bladder distention to suggest urinary retention. The other pelvic structures are unremarkable. Chronic compression fracture upper endplate of L4. 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 IMPRESSION: Chronic changes as noted. No acute pathology. This study was performed using dose reduction techniques to include automated exposure control and/or adjustment of the mA and/or kV according to patient size. DICTATED BY: BISHNU SINHA MD DATE: 03/09/251921 ELECTRONICALLY SIGNED BY: BISHNU SINHA MD DATE: 03/09/251926 Close ED Course ED Course Orders Procedure Category Date Status Time Cbc With Differential LAB 03/09/25 Complete 15:00 Basic Metabolic Panel LAB 03/09/25 Complete 15:00 Stool Panel Gi By Pcr LAB 03/09/25 In Process 15:00 Lipase LAB 03/09/25 Complete 15:00 Hepatic Function Panel LAB 03/09/25 Complete 15:00 Urinalysis Profile LAB 03/09/25 Complete 15:00 0.9%Nacl 1000ml (Ns PHA 03/09/25 In Process 1000ml) 15:00 Morphine 2mg Syg PHA 03/09/25 Complete (Morphine 2mg Syg) 15:00 12 Lead Ekg Tracing- EKG 03/09/25 Complete Technical 15:00 Troponin I High LAB 03/09/25 Complete Sensitivity 15:00 Ct Abdomen/Pelvis CT 03/09/25 Resulted W/Contrast 17:31 Iohexol (Omnipaque) PHA 03/09/25 Complete 18:58 Culture Urine ARCHANA 03/09/25 In Process 20:00 Ceftriaxone 1g Vial PHA 03/09/25 Transmitted (Rocephine 1g Inj) 20:13 Current Medications Medications (Trade) Dose Ordered Sig/Meghna Route PRN Reason Start Time Stop Time Status Last Admin Dose Admin Iohexol (Omnipaque) 75 ml STK-MED ONCE IV 03/09/25 18:58 03/09/25 18:58 DC Morphine Sulfate (morPHINE 2MG SYG) 2 mg ONCE STAT IVP 03/09/25 15:00 03/09/25 15:04 DC 03/09/25 16:49 Sodium Chloride 1,000 ml @ 100 mls/hr Q10H STAT IV 03/09/25 15:00 03/10/25 00:59 03/09/25 16:44 Vital Signs Date Time Temp Pulse Resp B/P (MAP) Pulse Ox O2 Delivery O2 Flow Rate FiO2 03/09/25 19:30 98.1 88 16 130/72 97 Room Air* 0 21 03/09/25 14:46 98.1 96 14 137/68 95 Room Air 0 Medical Decision Making MDM MDM: 70-YEAR-OLD FEMALE WITH A HISTORY OF HYPERTENSION DIABETES COMING IN COMPLAINING OF DIARRHEA ONSET YESTERDAY. PATIENT ALSO STATES SHE IS HAVING DYSURIA. DENIES ANY FEVER, NAUSEA OR VOMITING. DENIES ANY CHEST PAIN OR CHEST DISCOMFORT. CBC SHOWS LEUKOCYTOSIS OF 14, NO ANEMIA, THROMBOCYTOPENIA. CHEMISTRY UNREMARKABLE. UA SHOWS EVIDENCE OF URINARY TRACT INFECTION. PATIENT WILL RECEIVE IV ANTIBIOTICS IN THE ER AND WE WILL BE DISCHARGED ON ANTIBIOTIC PRESCRIPTION. DISCUSSED WITH THE PATIENT THAT WE DO NOT HAVE GET THE RESULTS FOR THE PCR IMMEDIATELY AND IF IT IS POSITIVE THEY WILL CALL HER FOR A PRESCRIPTION IF NEEDED OR RETURN TO ER. PATIENT DID NOT FAMILY MEMBER VERBALIZED UNDERSTANDING, ANSWERED ALL QUESTIONS. DIFFERENTIAL DIAGNOSIS: GASTROENTERITIS, DIVERTICULITIS, UTI RATIONALE: TESTS CONSIDERED AND ORDERED SECONDARY TO SHARED DECISION MAKING INCLUDE: PREVIOUS OUTSIDE RECORDS REVIEWED: OLD ER VISITS. RISK OF COMPLICATION AND/OR MORBIDITY OR MORTALITY OF PATIENT MANAGEMENT: NONE MEDICATIONS-PER MEDICATION RECONCILIATION NEED FOR HOSPITALIZATION: PATIENT DOES NOT MEET CRITERIA FOR HOSPITALIZATION. NEED FOR EMERGENCY MAJOR/MINOR SURGERY: NO THERE ARE NO SOCIAL CONCERNS WITH THIS PATIENT. PRESCRIPTION DRUG MANAGEMENT PRESCRIPTIONS WILL INCLUDE SYMPTOMATIC CARE PATIENT'S PRIOR EXTERNAL MEDICAL RECORDS FROM OTHER ER VISITS WERE REVIEWED BY ME INDICATED. PRIOR TESTING AND RESULTS FROM PREVIOUS VISITS WERE REVIEWED. PRIOR TESTS WERE TAKEN INTO ACCOUNT WITH MEDICAL DECISION MAKING AND RESOURCE UTILIZATION, INDEPENDENT HISTORIAN/HISTORIANS WERE USED TO OBTAIN COMPLETE MEDICAL HISTORY. I INDEPENDENTLY INTERPRETED THE TEST THAT WERE PERFORMED, RESULTS WERE REVIEWED BY ME AND CONSIDERED FINDINGS ON RADIOLOGY IF ORDERED. MEDICAL MANAGEMENT AND EXAMINATION INTERPRETATION DISCUSSIONS WERE HAD BY ME WITH OTHER QUALIFIED HEALTHCARE PROFESSIONALS INDICATED FOR THE PATIENT'S CARE. DX & DISP Disposition: Discharge Departure Impression: Primary Impression: Urinary tract infection Additional Impression: Gastroenteritis Condition: Stable Scripts Cephalexin Monohydrate (Keflex) 500 Mg Cap 500 MG PO BID for 7 Days, #28 CAP Prov: SANDRA CANTU PLACEMENT OFFICER 03/09/25 Additional Instructions: TAKE ANTIBIOTICS PRESCRIBED FOR URINARY TRACT INFECTION. STAY HYDRATED, AVOID ANY SUGARY DRINKS, AVOID ANY SPICY OR GREASY FOODS. RETURN TO THE HOSPITAL IF YOU HAVE ANY WORSENING SYMPTOMS OTHERWISE FOLLOW UP WITH YOUR PCP. Referrals: AVERY RIOS MD (PCP) Time of Disposition: 20:17 I have reviewed the case, and I agree with, Diagnosis and Plan SANDRA CANTU NP March 09, 2025 19:34
[2025-03-09 19:59] LABS: APPEARANCE,URINE CLEAR (CLEAR); BILIRUBIN,URINE NEGATIVE (NEGATIVE); COLOR,URINE COLORLESS (YELLOW); GLUCOSE, URINE (UA) >=1000 mg/dL (NEGATIVE); KETONES,URINE NEGATIVE (NEGATIVE); LEUKOCYTE ESTERASE ,URINE 75 Leu/uL (NEGATIVE); NITRATE,URINE NEGATIVE (NEGATIVE); OCCULT BLOOD,URINE NEGATIVE (NEGATIVE); PROTEIN,URINE NEGATIVE (NEGATIVE); UROBILINOGEN,URINE 0.2 mg/dL (0.2-1.0)
[2025-03-09 20:00] LABS: ADD UA MICROSCOPIC YES
[2025-03-09 20:05] LABS: BACTERIA,URINE MANY /HPF (None Seen); MUCUS,URINE RARE LPF (None Seen); SQUAMOUS EPITHELIAL CELL,UR RARE /HPF (0-2)
[2025-03-09] MEDS ORDERED: CEPH500B PO (20:16)
[2025-03-09] MEDS: cefTRIAXone 1G VIAL IVPB STA (20:19)
[2025-03-09 20:38] VITALS: BP 135/73; PULSE 80; RESP 16; TEMP 98.1; O2SAT 95
[2025-03-12 15:13] LABS: C DIFFICILE TOXIN A/B Not Detected (Not Detected); ENTEROAGGREGATIVE ECOLI Not Detected (Not Detected); GIARDIA LAMBLIA Not Detected (Not Detected); PLESIOMONAS SHIGELOIDES Not Detected (Not Detected); SAPOVIRUS Not Detected (Not Detected); SHIGELLA/ENTEROINVASIVE E COLI Not Detected (Not Detected); VIBRIO Not Detected (Not Detected); VIBRIO CHOLERAE Not Detected (Not Detected)
== END 2025-03-09 20:42 | disposition home or self-care (01) ==
LOC: EDH 14:44
DX: N39.0 Urinary tract infection, site not specified (principal); K52.9 Noninfective gastroenteritis and colitis, unspecified; E11.9 Type 2 diabetes mellitus without complications; I10 Essential (primary) hypertension; Z79.01 Long term (current) use of anticoagulants; Z79.02 Long term (current) use of antithrombotics/antiplatelets; Z79.84 Long term (current) use of oral hypoglycemic drugs; Z79.899 Other long term (current) drug therapy
CPT/HCPCS: 99285; 74177; 96374; 96361; 96375; 80076; 84484; 80048; 83690; 85025; 87086 ×2; 87186; 81001; 36415; 93005; 87507; J2270; J7030; J0696; Q9967